=== PATIENT | female | born 1945 | race Caucasian/White ===

== ENCOUNTER → 2019-11-19 | Outpatient (CLI) | payer MEDICARE, OTHER ==
[~2019-11-19] MED LIST: ASPIRIN E.C. 8181 MG PO; CALTRATE 600 +1 TAB PO; FISH OIL 1000MG1 CAP PO; MICARDIS HCT 121 TAB PO; NORCO 325 MG-7.1 TAB PO; VITAMIN C500 MG PO; VITAMIN D31000 IU PO; VITAMIN E 400 U4001 PO; [UNRECOGNIZED DRUG - OTHER] PO
== END ==
LOC: COL.RAD 11:48
DX: Z01.812 Encounter for preprocedural laboratory examination (principal); R91.8 Other nonspecific abnormal finding of lung field
CPT/HCPCS: A9585

== ENCOUNTER → 2019-11-24 | Outpatient (CLI) | payer MEDICARE, OTHER ==
--- NOTE | 2019-11-20 09:50 | NUR ---
LMOM WITH INFORMATION, DATE, TIME AND CA;; BACK NUMBER
[~2019-11-24] VITALS: Ht 157.5 cm; Wt 79.2 kg
[2019-11-24] VITALS (14 sets, daily range): BP systolic 107–152; BP diastolic 54–83; PULSE 83–92
[2019-11-24 09:37] LABS: INR 1.2 (0.8-3.0); PROTHROMBIN TIME 14.2 SECONDS (9.7-12.8)
--- NOTE | 2019-11-24 10:20 | NUR ---
Pt to ct per wheelchair. Pt positioned in supine position on ct table. Monitors applied.
--- NOTE | 2019-11-24 10:49 | NUR ---
Specimens obtained by Dr Herrera and placed in formalin. Specimen labeled.
== END ==
LOC: COL.RAD 09:04
PROVIDERS: Internal Medicine Medical Oncology
DX: C50.411 Malignant neoplasm of upper-outer quadrant of right female breast (principal); K76.89 Other specified diseases of liver

== ENCOUNTER 2019-12-10 12:02 | Inpatient (IN) | payer MEDICARE, OTHER ==
[2019-12-10] VITALS (77 sets, daily range): BP systolic 136–139; BP diastolic 84–90; PULSE 98–104; TEMP 97.8–97.9; O2SAT 94–98
[~2019-12-10] VITALS: Ht 157.5 cm; Wt 77.2 kg
[2019-12-10 13:33] LABS: LACTIC ACID 2.4 mmol/L (0.4-2.0)
[2019-12-10 13:38] LABS: INR 1.5 (0.8-3.0); PROTHROMBIN TIME 17.4 SECONDS (9.7-12.8)
[2019-12-10 13:41] LABS: ALBUMIN 3.5 gm/dL (3.5-5.0); BILIRUBIN,TOTAL 5.1 mg/dL (0.0-1.0); CALCIUM 9.6 mg/dL (8.4-10.2); CREATININE, serum 3.15 (0.52-1.25); MAGNESIUM 2.9 mg/dL (1.6-2.3); PARTIAL THROMBOPLASTIN TIME 27.9 SECONDS (26.0-37.0); PHOSPHOROUS 5.9 mg/dL (2.5-4.5); POTASSIUM 5.2 mmol/L (3.4-5.0); TOTAL PROTEIN 6.7 gm/dL (6.4-8.2)
[2019-12-10 13:52] LABS: TROPONIN-I 0.032 ng/mL (0.000-0.035)
[2019-12-10 14:09] LABS: HEMATOCRIT 50.3 % (37.0-47.0); HEMOGLOBIN 16.5 g/dl (12.5-16.0); MEAN CELL VOLUME 100 fl (80.0-100.0); MEAN CORPUSCULAR HEMOGLOBIN 33 pg (27.0-31.0); MEAN CORPUSCULAR HGB CONC 33 g/dl (33.0-37.0); PLATELET COUNT 111 K/mm3 (130-400); RED BLOOD COUNT 5.03 M/mm3 (4.10-5.30); REDCELL DISTRIBUTION WIDTH-CV 14.4 % (11.5-14.5)
[2019-12-10] MEDS ORDERED: ASPIRIN 81M81 MG/TA2 PO (14:30)
[2019-12-10] MEDS ORDERED: DECADRON 4MG TAB4 MG PO (14:32)
[2019-12-10] MEDS ORDERED: ZOFRAN8 MG PO (14:33)
[2019-12-10] MEDS ORDERED: NORCO 325 MG-51 TAB PO (14:33)
[2019-12-10 14:38] LABS: BAND 2 % (0-10); LYMPHOCYTE 5 % (20.0-51.0); NEUTROPHILS 86 % (42.0-75.2); PLATELET ESTIMATE DECREASED (NORMAL)
--- NOTE | 2019-12-10 15:04 | NUR ---
Report recieived from ENE Tanner - IMCU 16 currently unavailable - will call Ciro back when room ready
--- NOTE | 2019-12-10 15:13 | NUR ---
MD Kan notified recreational sports director having difficulty obtaining lab draws for lactic acid - and that RN had difficulty obtaining IV access - and that AIVS is unavailable.
[2019-12-10 15:55] LABS: COLLECTION METHOD CLEAN CATCH
[2019-12-10 16:03] LABS: MUCOUS Present /lpf; PH 5 (5-8); SQUAMOUS EPITHELIAL 0-2 /hpf; URINE APPEARANCE Cloudy; URINE BACTERIA Many /hpf; URINE BILIRUBIN Negative (NEGATIVE); URINE BLOOD 2+ (NEGATIVE); URINE COLOR Amber; URINE GLUCOSE Negative (NEGATIVE); URINE KETONE Trace (NEGATIVE); URINE LEUKOCYTE ESTERASE 2+ (NEGATIVE); URINE NITRATE Negative (NEGATIVE); URINE PROTEIN(semi-quant) 1+ (NEGATIVE); URINE UROBILINOGEN >=4.0 mg/dL (NEGATIVE)
--- NOTE | 2019-12-10 19:20 | NUR ---
Received report from ENE Rowley.
[2019-12-11] VITALS (588 sets, daily range): BP systolic 90–135; BP diastolic 62–81; PULSE 96–106; TEMP 97.3–98.2; O2SAT 92–98
[2019-12-11 06:31] LABS: HEMATOCRIT 51.7 % (37.0-47.0); HEMOGLOBIN 16.2 g/dl (12.5-16.0); MEAN CELL VOLUME 102 fl (80.0-100.0); MEAN CORPUSCULAR HEMOGLOBIN 32 pg (27.0-31.0); MEAN CORPUSCULAR HGB CONC 31 g/dl (33.0-37.0); MEAN PLATELET VOLUME 11.8 fl (7.4-10.4); PLATELET COUNT 118 K/mm3 (130-400); RED BLOOD COUNT 5.05 M/mm3 (4.10-5.30); REDCELL DISTRIBUTION WIDTH-CV 14.6 % (11.5-14.5)
--- NOTE | 2019-12-11 06:40 | NUR ---
Patient transferred to ICU room 5 at this time.
[2019-12-11 06:44] LABS: ALBUMIN 3.1 gm/dL (3.5-5.0); BILIRUBIN,TOTAL 4.3 mg/dL (0.0-1.0); CALCIUM 9.3 mg/dL (8.4-10.2); CREATININE, serum 1.81 (0.52-1.25); TOTAL PROTEIN 6.1 gm/dL (6.4-8.2)
--- NOTE | 2019-12-11 07:10 | NUR ---
Report received from Mily LUQUE and care resumed.
--- NOTE | 2019-12-11 07:24 | NUR ---
Patient made no attempt to drink anything throughout shift. When sips of water were offered, patient declined. Staff insisted patient attempt a small sip of water prior to attempting oral medication this morning. Patient was unable to utilize straw, and immediately began coughing with small sip. Speech consult requested for swallow evaluation.
--- NOTE | 2019-12-11 07:26 | NUR ---
Report given to ENE Nolasco.
[2019-12-11 07:28] LABS: PLATELET ESTIMATE NORMAL (NORMAL)
[2019-12-11 07:32] LABS: POLYCHROMASIA 2+
[2019-12-11 07:44] LABS: NEUTROPHILS 97 % (42.0-75.2)
--- NOTE | 2019-12-11 10:00 | NUR ---
Dr Omer in to see pt at this time.
--- NOTE | 2019-12-11 10:34 | NUR ---
KAYLA moncada attended clinical rounds with the team. PT/OT/ST ordered. After clinical rounds, KAYLA moncada met with the patient and the patient's Mehdi, to complete initial intake. The patient is infirm due to her illness and Mehdi answered questions. The patient lives in [place] with her Mehdi. The patient has a cane. Mehdi assist with ADLs. The patient has spongebaths. Mehdi states the patient cannot step into the tub. The patient does not have advanced directives in the EMR. Mehdi states they are completed. Mehdi reports he is on a leave of absence from his job at [employer]. There are two daughters, Babita Pacheco from [place], Val Carty from [place], both are coming to visit. printing services coordinator will continue to follow to ensure a safe discharge.
--- NOTE | 2019-12-11 17:24 | NUR ---
Report given to Lizy LUQUE and care transfered.
--- NOTE | 2019-12-11 19:15 | NUR ---
Bedside report received from ENE Medel. Patient care received. Assisted with repositioning. Call light left within reach. Family at bedside. Will continue to monitor.
[2019-12-12] VITALS (402 sets, daily range): BP systolic 124–138; BP diastolic 67–77; PULSE 102–111; TEMP 97.6–98.2; O2SAT 93–97
--- NOTE | 2019-12-12 00:10 | NUR ---
Patient resting in bed with eyes shut. Assisted with repositioning. No concerns at this time.
--- NOTE | 2019-12-12 04:30 | NUR ---
Assisted with repositioning and oral care. No concerns at this time.
[2019-12-12 06:21] LABS: HEMOGLOBIN 16.3 g/dl (12.5-16.0); MEAN CELL VOLUME 105 fl (80.0-100.0); MEAN CORPUSCULAR HEMOGLOBIN 33 pg (27.0-31.0); MEAN CORPUSCULAR HGB CONC 31 g/dl (33.0-37.0); MEAN PLATELET VOLUME 10.9 fl (7.4-10.4); PLATELET COUNT 91 K/mm3 (130-400); REDCELL DISTRIBUTION WIDTH-CV 14.9 % (11.5-14.5)
[2019-12-12 06:35] LABS: HEMATOCRIT 52.3 % (37.0-47.0)
[2019-12-12 06:39] LABS: BILIRUBIN,TOTAL 3.8 mg/dL (0.0-1.0); CALCIUM 9.7 mg/dL (8.4-10.2); CREATININE, serum 1.18 (0.52-1.25); PHOSPHOROUS 3.4 mg/dL (2.5-4.5); POTASSIUM 4.9 mmol/L (3.4-5.0); TOTAL PROTEIN 5.9 gm/dL (6.4-8.2)
[2019-12-12 07:12] LABS: LYMPHOCYTE 1 % (20.0-51.0); NEUTROPHILS 96 % (42.0-75.2)
[2019-12-12 07:13] LABS: PLATELET ESTIMATE DECREASED (NORMAL)
--- NOTE | 2019-12-12 08:24 | NUR ---
Patient transfered to [facility]. Accepting nurse at bedside. Patient alert per usual upon transfer.
--- NOTE | 2019-12-12 08:30 | NUR ---
Patient to floor via bed. Transferred from ICU bed to bed. Patient opens eyes to speech. When asked questions patient does not answer back, attempts to but no speech comes out. Cheeks flushed. IV site to right AC leaking. Fluids paused at this time. Small one inch size red area noted to right lower buttocks. No breakdown of skin. Starkey patent draining dark yellow urine with sediment. Oriented to room and call light provided to the patient.
--- NOTE | 2019-12-12 08:30 | NUR ---
Attempt to find new site for IV in right arm. Unable to find accesible vein. Asked Dorene, charge nurse, to see if she is able to find IV site. Spouse in room with the patient.
--- NOTE | 2019-12-12 09:21 | NUR ---
In room to check on patient. Spouse tearful and explains that the patient told him that she is ready to give up and she wants to go be with Catracho. Explained that I would update the providers. Spouse not sure he is ready for this. Spouse and daughter remain in room with the patient.
--- NOTE | 2019-12-12 10:21 | NUR ---
Found granddaughter crying in the [place]. She states "my grandma wants to give up". Kleenex and support provided. Dr Gibbons also wrote order for palliative care consult and he and I met with family and pt at bedside. is struggling to not give up but yet recognizing that she is not doing well. He keeps saying "She could live for 10 more years". Reminded that hope is always there but that would be a miracle. Have provided comfort measures at bedside, beauty consultant has been in, additional family is arriving throughout morning. Pt is on comfort care at this point.
--- NOTE | 2019-12-12 10:43 | NUR ---
The patient was transferred to the medical floor this day.
--- NOTE | 2019-12-12 11:20 | NUR ---
Initial visit; Was alerted of patient arrival from Oncology Nurse. Stitcher Feeder provided comfort and prayer for patient and family and checked on them throughout the morning. Stitcher Feeder let them know of the availability of [facility] Fe[facility] around the clock at our hospital and offered God's blessings.
--- NOTE | 2019-12-12 11:55 | NUR ---
Lying in bed with eyes closed. Respirations even and unlabored. No signs or symptoms of discomfort noted at this time. Family in room with the patient.
--- NOTE | 2019-12-12 15:26 | NUR ---
Into check on pt throughout day. She is resting peacefully with and family at bedside. is providing oral care and holding her hand with such a gentle touch. He tells me he thinks his is dying. Support provided. They declined community engagement specialist at this time. They are still waiting on one family member to come yet.
--- NOTE | 2019-12-12 15:38 | NUR ---
Lying in bed with eyes closed. Respirations even and unlabored. No signs or symptoms of discomfort noted. Family remains in room with the patient.
--- NOTE | 2019-12-12 18:18 | NUR ---
Report received from ENE [place]. Pt in bed resting with a lot of family at bedside for comfort. Pt showing signs of cheynne dahl breathing with rapid respiratory rate then periods of apnea. Discussed options for medications to ease pain and discomfort but family would not like anything at this time. Will give bedside shift report to nightshift nurse who will resume care.
--- NOTE | 2019-12-12 20:00 | NUR ---
Resting in bed. Assessment complete. Bases diminished. Heart sounds pounding. No edema noted. Starkey to dependent drainage. Family denies needs. Will monitor.
--- NOTE | 2019-12-12 21:12 | NUR ---
Patient provided with PO roxanol for air hunger. Patient continues to pull oxygen masks off at this time. Family states "She wishes to see Catracho." Will monitor patient. Offered snacks. Denies at this time.
--- NOTE | 2019-12-12 22:03 | NUR ---
Resting in bed more comfortable. Patient allowing oxymask to stay on. Will monitor.
--- NOTE | 2019-12-12 23:33 | NUR ---
Patient appears calm and without discomfort. Provided family with refreshments. Denies other needs. Call light in reach.
--- NOTE | 2019-12-13 01:17 | NUR ---
Resting in bed with family at bedside. Appears comfortable without signs of distress.
--- NOTE | 2019-12-13 03:26 | NUR ---
Resting in bed with family at bedside. Appears to be resting comfortably without any discomfort at this time. Family denies needs.
--- NOTE | 2019-12-13 05:00 | NUR ---
Provided patient family with coffee. Patient resting comfortably. Denies other needs. Call light in reach.
--- NOTE | 2019-12-13 05:48 | NUR ---
Patient received x1 dose of roxanol during night. Remained comfortable without distress. Family remained at bedside throughout night. Otherwise uneventful.
--- NOTE | 2019-12-13 07:02 | NUR ---
Report given to ENE Gaxiola
[2019-12-13 08:50] VITALS: BP 86/58; PULSE 102; TEMP 97.8
--- NOTE | 2019-12-13 09:11 | NUR ---
Assessment complete. PT resting at this time. Unresponsive to verbal commands. Small eye lid movement noted but no verbal responses. Visible pale/blue coloration around pts mouth. Generalized edema present on all extremities. Heart sounds were normal, tachycardic. Family is at the bedside at this time. No discomfort is visible at this time, family is aware to notify if she seems uncomfortable. student services vice president is in to speak with them about plans. No further needs were expressed at this time. Call light in reach.
--- NOTE | 2019-12-13 10:00 | NUR ---
Pts came to inform me that he thought the pt may go sometime soon. He was concerned about plans and homes. cargo services coordinator was able to visit with him and he states it was very helpful. Multiple family members are at the bed side. They are aware of her POC. Family states that they think she is comfortable, no discomfort is visible. No further needs were expressed at this time. Call light is in reach.
--- NOTE | 2019-12-13 11:52 | NUR ---
Follow-up: DAREK met with the spouse of the patient about some of his concerns on getting his moved after she passes. SW educated and gave him the phone number to [facility], educated him that we would call to have her body transferred and he could set up the arrangments to get her cremated. appears to be a little anxious, assisted him with process so that he can be with his .
--- NOTE | 2019-12-13 13:01 | NUR ---
Test Baker offered prayer and support with patient while spouse and bounty hunter were in room.
--- NOTE | 2019-12-13 18:09 | NUR ---
Pts family has been at the bedside all day. is aware of her POC, SW has spoken with him. Ebony came to meet with them as well. There have been no signs of discomfort. I offered to move the pt and reposition her and Pts said he did not think that was necessary. Starkey is patent with minimal output. Family is extrememly supportive and aware of the situation. No further needs expressed at this time. Call light in reach.
--- NOTE | 2019-12-13 19:32 | NUR ---
IN ROOM TO ASSESS PATIENT AND BE IN THE ROOM WITH FAMILY. PATIENT IS WARM BUT THIS NURSE WAS UNABLE TO PALPATE RADIAL OR DORALIS PEDIS PULSES BILATERALLY. LUNGS ARE STILL CLEAR IN THE TOPS AND DIMINISHED IN THE BASES. WAS IN THE ROOM AND WAS ANSWERING QUESTIONS THE FAMILY HAD ABOUT DYING. COMFORT MEASURES GIVEN TO THE FAMILY AND PATIENT. DENIES ANY OTHER NEEDS AT THIS TIME. PATIENT IS RESTING AND DOES NOT APPEAR TO BE IN ANY DISTRESS/PAIN.
--- NOTE | 2019-12-13 20:26 | NUR ---
Resting comfortably with family at bedside. Family denies needs at this time.
--- NOTE | 2019-12-13 23:41 | NUR ---
checked on patient and the family present in the room. patient is pale and mottling present in lower extremities present. breathing has changed from earlier as she is breathing very shallow and 20 breaths per minutes. skin appears to be getting shinier.
--- NOTE | 2019-12-14 00:20 | NUR ---
Patient has as of 3. Confirmed by this nurse and Antelmo Price RN. House supervisior ENE Dodson notified. Dr. Gibbons also notified. Family present at time of passing. Would like time with patient. Explained to family to take as much time needed to grieve. Denies needs at this time. Contacting local family to see patient.
--- NOTE | 2019-12-14 00:40 | NUR ---
request staff remove moreno. Allowed staff to also preform post mortom cares at this time. Moreno removed.
--- NOTE | 2019-12-14 03:34 | NUR ---
Family remains at bedside with patient. Family denies needs.
--- NOTE | 2019-12-14 06:44 | NUR ---
Updates given to ENE [place]
--- NOTE | 2019-12-14 07:45 | NUR ---
Body released to home at this time.
== END 2019-12-14 07:46 | disposition expired | DRG 871 ==
LOC: COL.ER 12:02 → IMCU 14:46 → ICU 12-11 07:57 → MEDICAL 12-12 08:23
PROVIDERS: Emergency Medicine; ADMIT Hospitalist
DX: A41.9 Sepsis, unspecified organism (principal); I21.4 Non-ST elevation (NSTEMI) myocardial infarction; C78.00 Secondary malignant neoplasm of unspecified lung; C79.31 Secondary malignant neoplasm of brain; E87.2 Acidosis; N17.9 Acute kidney failure, unspecified; J38.01 Paralysis of vocal cords and larynx, unilateral; D69.6 Thrombocytopenia, unspecified; R13.10 Dysphagia, unspecified; Z66 Do not resuscitate; D75.1 Secondary polycythemia; Z51.5 Encounter for palliative care; C50.919 Malignant neoplasm of unspecified site of unspecified female breast; E87.5 Hyperkalemia; E83.39 Other disorders of phosphorus metabolism; R65.20 Severe sepsis without septic shock; I95.9 Hypotension, unspecified; Z90.12 Acquired absence of left breast and nipple
CPT/HCPCS: 99223-AI; 99231-AI; 99232-AI; 99233-AI; 99239; A4216; J0696; J1100; J1644; J2270; J3010; J7030